=== PATIENT | male | born 1960 | race Caucasian/White ===

== ENCOUNTER 2019-07-02 05:20 | Day surgery (SDC) | payer BC, MEDICAID ==
[2019-06-28 16:07] LABS: BASOPHILS % (AUTO) 0.5 % (0-1); EOSINOPHILS # (AUTO) 0.3 X10'3 (0-0.9); EOSINOPHILS % (AUTO) 5.6 % (0-6); LYMPHOCYTES % (AUTO) 34.6 % (21-51); MEAN CORPUSCULAR HEMOGLOBIN 29.5 PG (27.0-31.0); MEAN CORPUSCULAR HGB CONC 33.6 g/dL (33.0-36.5); MEAN CORPUSCULAR VOLUME 87.9 FL (78-98); MEAN PLATELET VOLUME 8.7 FL (7.4-10.4); MONOCYTES # (AUTO) 0.5 X10'3 (0-0.9); MONOCYTES % (AUTO) 8.9 % (2-12); NEUTROPHILS # (AUTO) 2.9 X10'3 (1.8-7.7); NEUTROPHILS % (AUTO) 50.4 % (42-75); PRE OP HEMATOCRIT 43.8 % (42.0-52.0); PRE OP HEMOGLOBIN 14.7 g/dL (14.0-17.9); PRE OP PLATELET COUNT 243 X10'3 (140-440); RED BLOOD COUNT 4.99 X10'6 (4.70-6.10); RED CELL DISTRIBUTION WIDTH 13.1 % (11.5-14.5)
[2019-06-28 16:18] LABS: ALKALINE PHOSPHATASE 68 IU/L (46-116); BLOOD UREA NITROGEN 18 MG/DL (7-18); BUN/CREATININE RATIO 18.9 (5.4-32.0); CALCIUM 8.6 MG/DL (8.5-10.1); CHLORIDE 106 MMOL/L (99-107); CREATININE 0.95 MG/DL (0.60-1.10); PRE OP ALT 40 U/L (30-65); PRE OP ANION GAP 10 (8-16); PRE OP AST 18 U/L (10-37); PRE OP BILIRUB, TOTAL 0.2 MG/DL (0.0-1.0); PRE OP GLUCOSE 138 MG/DL (70-104); PRE OP POTASSIUM 3.8 MMOL/L (3.4-5.1); PRE OP SODIUM 140 MMOL/L (135-145); TOTAL CARBON DIOXIDE 23.9 MMOL/L (24-32); TOTAL PROTEIN 7.9 G/DL (6.4-8.2); eGFR 81 ML/MIN
[2019-07-02] VITALS (19 sets, daily range): BP systolic 118–157; BP diastolic 76–99
[~2019-07-02] VITALS: Ht 177.8 cm; Wt 107.9 kg
[~2019-07-02 05:20] MED LIST: FLO0.4C PO; LISI10TA4 PO; RANI150T8 PO; ringers solution, lacted 1,000 ML IV SCH
[2019-07-02] MEDS ORDERED: famotidine 20mg tablet PO ONE (05:30)
[2019-07-02] MEDS ORDERED: cefazolin/dext.iso 2gm/50ml 50 ML IV ONE (05:30)
[2019-07-02] MEDS ORDERED: BUPIVAcaine/PF 2.5 mg/ml (0.25%) 30ml vial ONE (06:38)
[2019-07-02] MEDS ORDERED: LIDOcaine 1% 30ml preserv. free vial ONE (06:38)
[2019-07-02 06:44] LABS: CLARITY,URINE CLEAR (Clear); COLOR,URINE YELLOW (Yellow); GLUCOSE, URINE NEGATIVE (Neg); KETONES,URINE NEGATIVE (Neg); LEUKOCYTE ESTERASE ,URINE NEGATIVE (Neg); NITRITES, URINE NEGATIVE (Neg); OCCULT BLOOD,URINE SMALL (Neg); PROTEIN,URINE NEGATIVE (Neg); UROBILINOGEN,URINE 0.2 E.U/dL (0.2-1.0)
[2019-07-02 06:46] LABS: UA COLLECTION TYPE NON-SPECIFIED
[2019-07-02 06:48] LABS: WBC,URINE 0-4 /HPF (0-4)
[2019-07-02 06:49] LABS: MUCUS STRANDS MANY /LPF (Neg); RBC,URINE 0-2 /HPF (0-2); SQUAMOUS EPITHELIAL CELL,UR FEW /LPF (FEW)
[2019-07-02 06:50] LABS: BACTERIA,URINE FEW /HPF (Neg)
[2019-07-02] MEDS ORDERED: MIDAZolam 5mg/5ml vial ONE (07:14)
[2019-07-02] MEDS ORDERED: fentaNYL /PF 50mcg/ml 5ml ampule ONE (07:14)
[2019-07-02] MEDS ORDERED: rocuronium 10mg/ml inj IV ONE (07:15)
[2019-07-02] MEDS ORDERED: neostigmine methylsulfate 1 MG/ML 10ml vial ONE (07:15)
[2019-07-02] MEDS ORDERED: glycopyrrolate 0.2mg/ml inj ONE (07:15)
[2019-07-02] MEDS ORDERED: ondansetron/PF 4mg/2ml inj ONE (07:15)
[2019-07-02] MEDS ORDERED: LIDOcaine 2% (20mg/ml) 5ml vial ONE (07:15)
[2019-07-02] MEDS ORDERED: propofol inj 20 ML IV ONE (07:15)
[2019-07-02] MEDS ORDERED: dexamethasone sod phosphate 4mg/ml inj. ONE (07:15)
[2019-07-02] MEDS ORDERED: hydrALAZINE 20mg/ml inj. IV PRN (07:20)
[2019-07-02] MEDS ORDERED: fentaNYL/PF 50MCG/1 ML 2ML syringe IV PRN ×2 (07:20)
[2019-07-02] MEDS ORDERED: ringers solution, lacted 1,000 ML IV SCH (07:20)
[2019-07-02] MEDS ORDERED: ondansetron/PF 4mg/2ml inj IV PRN (07:20)
[2019-07-02] MEDS ORDERED: morphine 4 MG/ML inj SYRINge IV PRN ×2 (07:20)
[2019-07-02] MEDS ORDERED: labetalol 20mg/4ml (5mg/ml) syringe IV PRN (07:20)
[2019-07-02] MEDS ORDERED: sevoflurane 250ml liquid IH ONE (07:25)
[2019-07-02] MEDS ORDERED: labetalol 20mg/4ml (5mg/ml) syringe IV ONE (07:56)
--- NOTE | 2019-07-02 09:15 | NUR ---
Received from OR via , accompanied by Anesthesiologist DR KWONG and report given by Anesthesiolgist. PT SLEEPING, RESPONDS TO VERBAL STIMULI, BUT NOT FULLY AWAKE OR FOLLOWING COMMANDS, SKIN WARM AND PINK, TEMP 35.7, PLACE GASTON BENJIEGGER ON PT, 3 BA'D ON ABD CD, PIV RIGHT HAND 20G WITH LR 200ML/HR, SNORING RESPIRATIONS.
[2019-07-02] MEDS ORDERED: HYDROcodone/acetaminophen 5mg/325mg tablet PO PRN ×2 (09:45)
--- NOTE | 2019-07-02 10:00 | NUR ---
PT UP TO BATHROOM TO ATTEMPT TO VOID. UNABLE TO VOID. BACK TO BED. PT HAS BEEN NEGIN SPRITE, WATER AND WAS NOW GIVEN COFFEE.
--- NOTE | 2019-07-02 11:05 | NUR ---
PT UP TO RESTROOM TO ATTEMPT TO VOID.
--- NOTE | 2019-07-02 11:15 | NUR ---
PT UNABLE TO VOID. BLADDER SCAN 288MLS. PT GIVEN MORE WATER TO DRINK.
--- NOTE | 2019-07-02 11:41 | NUR ---
DR BONNER UPDATED WITH PT STATUS. ORDER TO PLACE ARBOLEDA CATH FOR D/C HOME AND PT IS TO FOLLOW UP WITH DR BONNER IN HIS OFFICE THURSDAY 07/05 TO REMOVE ARBOLEDA.
--- NOTE | 2019-07-02 12:05 | NUR ---
PT MEETS DISCHARGE CRITERIA. ARBOLEDA CATHETER PLACED BY PILAR RN WITH LEG BAG ATTACHED. 500ML OUTPUT. PT WILL GO TO DR BONNER'S OFFICE ON THURSDAY 07/05 TO HAVE IT REMOVED, DISCHARGE INSTRUCTIONS REVIEWED WITH AND PT, BOTH VERBALIZE UNDERSTANDING, IV REMOVED, NEGIN FLUIDS, NORCO GIVEN AT 1000 WITH WELL CONTROLLED PAIN. PT DISCHARGED TO VEHICLE VIA W/C WITH JENNIFER. PT STATES THANK YOU UPON DISCHARGE. PERSONAL BELONGINGS TAKEN TO CAR WITH PATIENT'S .
== END 2019-07-02 12:05 | disposition home or self-care (01) ==
LOC: PAS 05:20
PROVIDERS: ATTEND Surgery
DX: K40.90 Unilateral inguinal hernia, without obstruction or gangrene, not specified as recurrent (principal); I10 Essential (primary) hypertension; N40.0 Benign prostatic hyperplasia without lower urinary tract symptoms; F17.210 Nicotine dependence, cigarettes, uncomplicated; K21.9 Gastro-esophageal reflux disease without esophagitis; E66.9 Obesity, unspecified; Z68.34 Body mass index [BMI] 34.0-34.9, adult; M19.90 Unspecified osteoarthritis, unspecified site; Z98.890 Other specified postprocedural states; Z79.899 Other long term (current) drug therapy; Z88.8 Allergy status to other drugs, medicaments and biological substances
CPT/HCPCS: 36415; 49650; 80053; 81001; 82948; 85025; 93005; C1781; J1100; J2001; J2250; J2405; J2704; J2710; J3010; J3490; J7120; S2900; A4215; A4338; A4618

== ENCOUNTER 2019-07-03 07:48 | Emergency (ER) | payer BC, MEDICAID ==
[~2019-07-03] VITALS: Ht 177.8 cm; Wt 106.6 kg
[~2019-07-03 07:48] MED LIST changes: -ringers solution, lacted 1,000 ML IV SCH
[2019-07-03 07:55] VITALS: BP 145/87
--- NOTE | 2019-07-03 08:00 | NUR ---
LEG F/C WAS REMOVED FROM PT.
--- NOTE | 2019-07-03 08:25 | NUR ---
PT. WAS ABLE TO URINATE POST F/C REMOVAL
== END 2019-07-03 08:39 | disposition home or self-care (01) ==
LOC: ER 07:48
DX: Z46.6 Encounter for fitting and adjustment of urinary device (principal); Z79.899 Other long term (current) drug therapy
CPT/HCPCS: 99281

== ENCOUNTER 2020-07-09 08:05 | Emergency (ER) | payer BC, MEDICAID ==
[~2020-07-09] VITALS: Ht 175.3 cm; Wt 111.3 kg
[2020-07-09 08:06] VITALS: BP 166/95
[2020-07-09] MEDS ORDERED: LIDOcaine 5% patch TP ONE (09:05)
[2020-07-09] MEDS ORDERED: ketorolac trometh. 30mg/ml inj. IM ONE (09:05)
== END 2020-07-09 10:45 | disposition home or self-care (01) ==
LOC: ER 08:05
DX: M25.512 Pain in left shoulder (principal); I10 Essential (primary) hypertension; Z79.899 Other long term (current) drug therapy
CPT/HCPCS: 73030; 96372; 99283; J1885

== ENCOUNTER 2024-09-20 09:40 | Emergency (ER) | payer BC, MEDICAID ==
[~2024-09-20] VITALS: Ht 177.8 cm; Wt 116.0 kg
[~2024-09-20 09:40] MED LIST changes: +LISI10TA27 PO; -LISI10TA4 PO
[2024-09-20 10:07] VITALS: TEMP 98.9
[2024-09-20] MEDS ORDERED: CLON0.2T PO (10:52)
[2024-09-20] MEDS ORDERED: AMLO-381 PO (10:52)
[2024-09-20 11:09] VITALS: BP 156/77; PULSE 71; RESP 18; O2SAT 94
== END 2024-09-20 11:11 | disposition home or self-care (01) ==
LOC: ER 09:42
DX: I10 Essential (primary) hypertension (principal); Z88.8 Allergy status to other drugs, medicaments and biological substances; Z79.899 Other long term (current) drug therapy
CPT/HCPCS: 99283; J7030

== ENCOUNTER 2025-04-30 13:12 | Emergency (ER) | payer BC ==
[~2025-04-30] VITALS: Ht 175.3 cm; Wt 113.6 kg
[~2025-04-30 13:12] MED LIST changes: +AMLO-381 PO; +CLON0.2T PO; -FLO0.4C PO; +TAMS-55 PO
[2025-04-30 13:15] VITALS: BP 162/93; PULSE 72; O2SAT 98
--- NOTE | 2025-04-30 14:47 | Physician Documentation ---
History of Present Illness ~ Chief Complaint: Abscess Stated Complaint: ABSCESS Time Seen by MD: 14:37 HPI Patient is seen today with complaints of a rapidly developing abscess close to the patient's rectum or involving the patient's rectum. Patient states symptoms started yesterday and have progressed rapidly. Patient states the abscess just started draining just about an hour ago. Patient denies any fevers or chills but states it is extremely painful to have a bowel movement. Patient does admit to previous history of hemorrhoids but states this feels in his very different from any hemorrhoid he has ever had. Patient denies any chest pain or shortness of breath or abdominal pain or nausea, vomiting, diarrhea. Patient has no other concern or complaint at this time. Tetanus Within 5 Years: Yes Medication Reconciliation Allergies: Coded Allergies: procaine (Verified Allergy, Severe, ANAPHYLAXIS, 09/20/24) Scheduled Amlodipine/Valsartan (Amlodipine-Valsartan 5-320 mg), 1 TAB PO DAILY Lisinopril (Lisinopril), 1 TAB PO DAILY, (Reported) Ranitidine HCl (Ranitidine HCl), 1 TAB PO BID, (Reported) Tamsulosin Hcl* (Flomax*), 1 CAP PO DAILY, (Reported) Scheduled PRN Clonidine HCl (Clonidine HCl), 1 TAB PO Q6H PRN for high blood pressure Past Medical History Past Medical History: Hypertension Past Surgical History: noncontributory Alcohol Use: None Drug Use: none Lives In: Home Review of Systems Constitutional: Denies: chills, fever, weakness Eyes: Denies: pain, blurred vision ENT: Denies: ear pain, nose pain, throat pain, mouth pain Respiratory: Denies: cough, shortness of breath Cardiovascular: Denies: chest pain, palpitations Gastrointestinal: Denies: abdominal pain, nausea, vomiting Genitourinary: Denies: burning, dysuria Male Genitalia: Denies: penile discharge, testicular pain Neurological: Denies: headache, dizziness Musculoskeletal: Denies: pain, swelling Integumentary: Denies: rash, lesions Allergic/Immunologic: Denies: hives, itching Hematologic/Lymphatic: Denies: no symptoms reported Psychiatric: Denies: depression, anxiety Physical Exam Vital Signs: Temperature: 98.7, Source: Temporal, Heart Rate: 72, Respiratory Rate: 18, BP: 162/93, Pulse Oximetry: 98, Weight: 113.640 Oxygen Flow Rate: 0 Physical Exam General: Awake and Alert, no acute distress. HEENT: Conjunctiva pink, Sclera clear, Mucus Membranes moist. Neck: Supple without masses and tenderness. Resp: Unlabored. Lungs clear to auscultation bilaterally. Heart: Regular Rate and rhythm, normal S1 and S2 without murmur, rub or gallop. Abdomen: Soft and non tender no organomegaly Rectum: Patient on exam has erythematous and indurated mass in the perirectal/perianal area at the 8 o'clock position of the rectum. I do not appreciate any fluctuant mass on palpation. The erythematous area of swelling measures approximally 2 cm in diameter. Extremities: No cyanosis,clubbing or edema. Skin: Warm and Dry. Progress Results/Orders Results/Orders Orders - JIMMY GUSTAFSON PAC Culture Blood (04/30/25 14:42) Chest,Single View (04/30/25 14:42) Ct Abdomen Pelvis (04/30/25 14:57) Saline Lock (04/30/25 ) Ct Pelvis (04/30/25 17:37) Completed Orders - JIMMY GUSTAFSON PAC Electrocardiogram (04/30/25 14:42) Cbc/Diff (04/30/25 14:42) MG (04/30/25 14:42) Chest,Single View (04/30/25 14:42) Ct Abdomen Pelvis (04/30/25 14:57) Procalcitonin (04/30/25 14:42) BMP (04/30/25 14:42) Hs Troponin I W Calculations (04/30/25 14:42) Lacticsepsis (04/30/25 14:42) C-Reactive Protein (04/30/25 14:42) ESR (04/30/25 16:05) Ketorolac Trometh 30mg/Ml Vial (Toradol (04/30/25 16:04) Acetaminophen 1,000mg/100ml Iv (Ofirmev (04/30/25 16:04) Ct Pelvis (04/30/25 17:37) Iohexol 300mg/Ml 100ml Inj. (Omnipaque-3 (04/30/25 17:25) Sulfamethox/Trimetho. Ds Tab (Septra Ds (04/30/25 18:16) Ua W/Microscopic, Cult If Ind (04/30/25 18:25) Medications Received in ER Medications (Trade) Dose Ordered Sig/Jayden Route PRN Reason Start Time Stop Time Status Last Admin Dose Admin (Toradol inj. 30mg/ml) 30 mg ONCE STAT IV 04/30/25 16:04 04/30/25 16:09 DC 04/30/25 17:47 30 MG Acetaminophen 100 ml @ 400 mls/hr ONCE STAT IV 04/30/25 16:04 04/30/25 16:18 DC 04/30/25 17:48 400 MLS/HR (Septra DS tab) 1 tab ONCE STAT PO 04/30/25 18:16 04/30/25 18:19 DC 04/30/25 18:30 1 TAB Vital Signs 04/30/25 04/30/25 13:15 17:47 Temp 98.7 Pulse 72 Resp 18 16 B/P (MAP) 162/93 Pulse Ox 98 O2 Flow Rate 0 Laboratory Tests Test 04/30/25 15:28 04/30/25 15:50 04/30/25 17:26 04/30/25 18:25 White Blood Count 7.5 Red Blood Count 4.69 L Hemoglobin 13.6 L Hematocrit 41.0 L Mean Corpuscular Volume 87.6 Mean Corpuscular Hemoglobin 29.0 Mean Corpuscular Hemoglobin Concent 33.1 Red Cell Distribution Width 13.9 Platelet Count 256 Mean Platelet Volume 8.8 Neutrophils (%) (Auto) 60.0 Lymphocytes (%) (Auto) 28.5 Monocytes (%) (Auto) 9.5 Eosinophils (%) (Auto) 1.4 Basophils (%) (Auto) 0.6 Neutrophils # (Auto) 4.5 Lymphocytes # (Auto) 2.1 Monocytes # (Auto) 0.7 Eosinophils # (Auto) 0.1 Basophils # (Auto) 0.0 CBC Comment Troponin I High Sensitivity 5 Sodium Level 143 Potassium Level 3.7 Chloride Level 107 Carbon Dioxide Level 29.5 Anion Gap 7 L Blood Urea Nitrogen 20 H Creatinine 1.12 H Estimated GFR/1.73 m2 66 BUN/Creatinine Ratio 17.9 Glucose Level 102 Lactic Acid Level 1.2 Calcium Level 8.7 Magnesium Level 2.0 C-Reactive Protein 0.71 H Albumin 3.8 Procalcitonin < 0.05 Chemistry Comments Erythrocyte Sedimentation Rate 14 Urine Specimen Description Cln catch midstream Urine Color Yellow Urine Clarity Clear Urine pH 6.0 Urine Specific [place] 1.010 Urine Protein Negative Urine Glucose (UA) Negative Urine Ketones Negative Urine Occult Blood Trace-intact Urine Nitrite Negative Urine Bilirubin Negative Urine Urobilinogen 0.2 Urine Leukocyte Esterase Negative Urine RBC 3-10 Urine WBC 0-4 Urine Squamous Epithelial Cells Few Urine Bacteria None seen Urine Culture Indicated Not ind Volume Urine Centrifuged 10 ml Urine Comment Microbiology Date/Time Source Procedure Growth Status 04/30/25 15:50 Blood Blood Culture - Preliminary NEGATIVE (LESS THAN 24 HOURS) Resulted EKG/XRAY/CT/US/VASC/MRI EKG : Additional Comment EKG interpreted by myself today shows normal sinus rhythm, regular rate at 67 beats per minute, no ST segment elevation and no axis deviation. Chest X-Ray : Additional Comments Chest x-ray interpreted by myself today shows no sign of large infiltrate, no large effusion, normal mediastinum. DIAGNOSTIC RADIOLOGY Patient: OZ ST Medical Record: [id number] HOSPITAL : 1960, Age: 65 Sex: Male Location: ER Patient Status: [facility] ER Service Date/Time: 04/30/25/ 2 Ordering Physician: JIMMY GUSTAFSON PAC Exam: CHEST,SINGLE VIEW EXAM: DI CHEST,SINGLE VIEW TECHNIQUE: Single frontal chest radiograph CLINICAL HISTORY: SEPSIS COMPARISON: None Findings/Impression: Frontal chest radiograph demonstrates no acute osseous or superficial soft tissue abnormalities. The trachea is midline. The cardiac silhouette and mediastinum are within normal limits. No pneumothorax, pleural effusions, or consolidations. Electronically Signed by:SANDRINE SANTOYO DO Date & Time: 04/30/25 152 Dictated by: SANDRINE SANTOYO DO Dictation date and time: 04/30/25 152 Primary Care Provider: NO PRIMARY CARE PROVIDER cc: JIMMY GUSTAFSON PAC ~ CT : Impression CAT SCAN Patient: OZ ST Medical Record: [id number] HOSPITAL : 1960, Age: 65 Sex: Male Location: ER Patient Status: [facility] ER Service Date/Time: 04/30/251456 Ordering Physician: JIMMY GUSTAFSON PAC Exam: CT ABDOMEN PELVIS Exam: CT CT ABDOMEN PELVIS History: Sepsis Comparison Study: None TECHNIQUE: Multidetector CT of the abdomen and pelvis was performed from lung bases to pubic symphysis. Imaging was performed without IV contrast. Axial, coronal, and sagittal multiplanar reformats were obtained from the axial data set by the technologist. RADIATION DOSE: DLP 1989.09 mGy.cm; CTDI vol 36.17 mGy. Findings: Lungs: The lung bases are clear. Heart: No cardiomegaly or pericardial effusion. Liver: Unremarkable. Gallbladder: Unremarkable. Spleen: Unremarkable Pancreas: Unremarkable Adrenals: Unremarkable Kidneys: Right renal cysts. GI tract: Diverticulosis without evidence of acute diverticulitis. : Unremarkable. Vasculature: Mild aortoiliac atherosclerosis. Lymphadenopathy: Absent Peritoneum: No ascites Musculoskeletal: Moderate multilevel degenerative changes of the thoracolumbar spine Soft tissues: Unremarkable Impression: 1. No acute abdominopelvic abnormalities. 2. Diverticulosis without evidence of acute diverticulitis Electronically Signed by:SANDRINE SANTOYO DO Date & Time: 04/30/251516 Dictated by: SANDRINE SANTOYO DO Dictation date and time: 04/30/251516 Primary Care Provider: NO PRIMARY CARE PROVIDER cc: JIMMY GUSTAFSON PAC ~ CAT SCAN Patient: OZ ST Medical Record: [id number] HOSPITAL : 1960, Age: 65 Sex: Male Location: ER Patient Status: [facility] ER Service Date/Time: 04/30/251736 Ordering Physician: JIMMY GUSTAFSON PAC Exam: CT PELVIS Exam: CT CT PELVIS History: perirectal abscess WITH IV CONTRAST Comparison Study: CT abdomen pelvis 06/2025 TECHNIQUE: Multidetector CT of the pelvis with IV contrast. Axial, coronal and sagittal multiplanar reformats were obtained from the axial data set by the technologist. Radiation Dose Information: CT Dose: CTDI volume is 46.3 mGy. Dose-length product is 1274.05 mGy*cm FINDINGS: No significant perirectal edema/stranding with no drainable fluid collection noted. Mild fat stranding over the bilateral inferior medial gluteal region. Sigmoid diverticulosis without diverticulitis. Otherwise, partially visualized bowel loops unremarkable. Urinary bladder is unremarkable. Enlarged prostate measuring 5.1 x 6.3 by 6.2 cm. Ectatic appearance of the distal aorta measuring up to 2.8 cm. Mild atherosclerotic calcification of the aorta and bilateral iliacs. Moderate size fat containing bilateral inguinal hernias. Slightly prominent bilateral inguinal lymph nodes which are most likely reactive. Small fat containing umbilical hernia. Severe degenerative changes of the lower lumbar spine. Sclerotic foci of Bilateral iliac bones which may represent bone islands. IMPRESSION: No significant perirectal abscess . enlarged prostate. Recommend correlation PSA. Sigmoid diverticulosis without diverticulitis. Electronically Signed by:SHAMEKA PEDERSON DO Date & Time: 04/30/251816 Dictated by: SHAMEKA PEDERSON DO Dictation date and time: 04/30/251816 Primary Care Provider: NO PRIMARY CARE PROVIDER cc: JIMMY GUSTAFSON PAC ~ Medical Decision Making Findings Patient is seen today with complaints of a rapidly developing abscess close to the patient's rectum or involving the patient's rectum. Patient states symptoms started yesterday and have progressed rapidly. Patient states the abscess just started draining just about an hour ago. Patient denies any fevers or chills but states it is extremely painful to have a bowel movement. Patient does admit to previous history of hemorrhoids but states this feels in his very different from any hemorrhoid he has ever had. Patient denies any chest pain or shortness of breath or abdominal pain or nausea, vomiting, diarrhea. Patient has no other concern or complaint at this time. Patient did have CT scan with contrast of pelvis that showed no sign of significant perirectal abscess formation. Labs are largely unremarkable patient has no sign of leukocytosis. Patient was given dose of Bactrim DS by mouth in the ED tonight and prescription of Bactrim DS was sent to patient's pharmacy to be taken twice a day for 10 days. Patient will return to ED in 48 hours if no better as needed sooner. Patient voiced understanding. Departure Disposition: HOME / SELF CARE / HOMELESS Impression: Primary Impression: Perirectal abscess Condition: Improved Discharge Instructions: Abscess, Care After Additional Instructions: Patient did have CT scan with contrast of pelvis that showed no sign of significant perirectal abscess formation. Labs are largely unremarkable patient has no sign of leukocytosis. Patient was given dose of Bactrim DS by mouth in the ED tonight and prescription of Augmentin was sent to patient's pharmacy to be taken twice a day for 10 days. Patient will return to ED in 48 hours if no better as needed sooner. Patient voiced understanding. Referrals: NO PRIMARY CARE PROVIDER (PCP) Prescriptions Amox Tr/Potassium Clavulanate (Augmentin 875-125 Tablet) 1 Each Tablet 1 TAB PO Q12H for 10 Days, #20 TAB Prov: JIMMY GUSTAFSON PAC 04/30/25 Additional Comment Additional Comment Patient offered admission but declined admission at this time. Signature Scribe Signature: No scribe Attestation: No scribe JIMMY GUSTAFSON PAC Apr 30, 2025 14:47
--- NOTE | 2025-04-30 15:19 | RADIOLOGY REPORT ---
Exam: CT CT ABDOMEN PELVIS History: Sepsis Comparison Study: None TECHNIQUE: Multidetector CT of the abdomen and pelvis was performed from lung bases to pubic symphysi s. Imaging was performed without IV contrast. Axial, coronal, and sagittal multiplanar reformats were obtained from the axial data set by the technologist. RADIATION DOSE: DLP 1989.09 mGy.cm; CTDI vol 36.17 mGy. Findings: Lungs: The lung bases are clear. Heart: No cardiomegaly or pericardial effusion. Liver: Unremarkable. Gallbladder: Unremarkable. Spleen: Unremarkable Pancreas: Unremarkable Adrenals: Unremarkable Kidneys: Right renal cysts. GI tract: Diverticulosis without evidence of acute diverticulitis. : Unremarkable. Vasculature: Mild aortoiliac atherosclerosis. Lymphadenopathy: Absent Peritoneum: No ascites Musculoskeletal: Moderate multilevel degenerative changes of the thoracolumbar spine Soft tissues: Unremarkable Impression: 1. No acute abdominopelvic abnormalities. 2. Diverticulosis without evidence of acute diverticulitis
--- NOTE | 2025-04-30 15:22 | RADIOLOGY REPORT ---
EXAM: DI CHEST,SINGLE VIEW TECHNIQUE: Single frontal chest radiograph CLINICAL HISTORY: SEPSIS COMPARISON: None Findings/Impression: Frontal chest radiograph demonstrates no acute osseous or superficial soft tissue abnormalities. The trachea is midline. The cardiac silhouette and mediastinum are within normal limits. No pneumothorax, pleural effusions, or consolidations.
[2025-04-30 16:01] LABS: MEAN PLATELET VOLUME 8.8 FL (7.4-10.4); RED CELL DISTRIBUTION WIDTH 13.9 % (11.5-14.5)
--- NOTE | 2025-04-30 16:02 | ELECTROCARDIOGRAPH REPORT ---
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
[2025-04-30 16:41] LABS: CREATININE 1.12 MG/DL (0.60-1.10); TOTAL CARBON DIOXIDE 29.5 MMOL/L (24-32); eCRCL 65 ML/MIN; eGFR 66 ML/MIN
[2025-04-30] MEDS ORDERED: iohexol 300mg/ml 100ml inj. ONE (17:25)
[2025-04-30 17:47] VITALS: RESP 16
[2025-04-30] MEDS: ketorolac trometh 30MG/ML vial 30 MG/ML VIAL IV STA (17:47)
[2025-04-30] MEDS: acetaminophen 1,000mg/100ml IV 100 ML IV STA (17:48)
--- NOTE | 2025-04-30 18:19 | RADIOLOGY REPORT ---
Exam: CT CT PELVIS History: perirectal abscess WITH IV CONTRAST Comparison Study: CT abdomen pelvis 06/2025 TECHNIQUE: Multidetector CT of the pelvis with IV contrast. Axial, coronal and sagittal multiplanar r eformats were obtained from the axial data set by the technologist. Radiation Dose Information: CT Dose: CTDI volume is 46.3 mGy. Dose-length product is 1274.05 mGy*cm FINDINGS: No significant perirectal edema/stranding with no drainable fluid collection noted. Mild fat strandin g over the bilateral inferior medial gluteal region. Sigmoid diverticulosis without diverticulitis. Otherwise, partially visualized bowel loops unremarkab le. Urinary bladder is unremarkable. Enlarged prostate measuring 5.1 x 6.3 by 6.2 cm. Ectatic appearance of the distal aorta measuring up to 2.8 cm. Mild atherosclerotic calcification of the aorta and bilateral iliacs. Moderate size fat containing bilateral inguinal hernias. Slightly prominent bilateral inguinal lymph nodes which are most likely reactive. Small fat containing umbilical hernia. Severe degenerative changes of the lower lumbar spine. Sclerotic foci of Bilateral iliac bones which may represent bone islands. IMPRESSION: No significant perirectal abscess . enlarged prostate. Recommend correlation PSA. Sigmoid diverticulosis without diverticulitis.
[2025-04-30] MEDS: sulfamethoxazole/trimethoprim DS (800/160mg) tablet PO STA (18:30)
[2025-04-30 19:03] LABS: LEUKOCYTE ESTERASE ,URINE NEGATIVE (Neg); NITRITES, URINE NEGATIVE (Neg); OCCULT BLOOD,URINE TRACE-INTACT (Neg)
[2025-04-30 19:10] LABS: UA COLLECTION TYPE CLN CATCH MIDSTREAM
[2025-04-30 19:13] LABS: SQUAMOUS EPITHELIAL CELL,UR FEW /LPF (FEW)
[2025-04-30] MEDS ORDERED: AMOX-117 PO (19:55)
[2025-04-30 20:24] VITALS: TEMP 98.7
== END 2025-04-30 20:25 | disposition home or self-care (01) ==
LOC: ER 13:12
DX: K61.1 Rectal abscess (principal); I10 Essential (primary) hypertension; Z88.8 Allergy status to other drugs, medicaments and biological substances; Z79.899 Other long term (current) drug therapy
CPT/HCPCS: 36415; 71045; 72193; 74176; 80048; 81001; 83605; 83735; 84145; 84484; 85025; 85651; 86140; 87040; 93005; 96374; 96375; 99285; J0131; J1885; Q9967